=== PATIENT | female | born 1935 | race African-American/Black ===

== ENCOUNTER 2017-07-13 16:47 | Inpatient (IN) | payer OTHER ==
[~2017-07-13] VITALS: Ht 157.5 cm; Wt 63.2 kg
[2017-07-13 18:06] LABS: BASOPHIL % 0.5 % (0-2); PLATELET COUNT 187 x10^3mcL (130-400)
[2017-07-13 18:23] LABS: RED CELL DISTRIBUTION WIDTH 17.8 % (11.5-14.5)
[2017-07-13 18:29] LABS: CALCIUM 8.9 mg/dL (8.5-10.1); CARBON DIOXIDE 28.6 mmol/L (21-32); CHLORIDE SERUM 106 mmol/L (98-107); CREATININE SERUM 0.9 mg/dL (0.6-1.0); GLUCOSE SERUM 101 mg/dL (74-106); POTASSIUM SERUM 3.6 mmol/L (3.5-5.1); SODIUM SERUM 140 mmol/L (136-145)
[2017-07-13 18:34] LABS: ALBUMIN 3.4 g/dL (3.4-5.0); ALKALINE PHOSPHATASE 78 U/L (46-116); ALT/SGPT 18 U/L (14-59); AST/SGOT 14 U/L (15-37); BILIRUBIN TOTAL 0.27 mg/dL (0.20-1.00); HDL CHOLESTEROL 55 mg/dL (40-60); LIPASE 89 IU/L (73-393); T3 TOTAL 0.61 ng/mL; TOTAL PROTEIN, SERUM 7.2 g/dL (6.4-8.2); TRIGLYCERIDES 145 mg/dL (<150)
[2017-07-13 18:38] LABS: FREE T4 0.9 ng/dL (0.76-1.46); T4(THYROXINE) 5.9 ug/dL (4.7-13.3)
[2017-07-13 18:45] LABS: CHOLESTEROL 201 mg/dL (<200); CHOLESTEROL/HDL RATIO 3.7
[2017-07-13] MEDS ORDERED: SYNTHROID0.088 MG PO (19:19)
[2017-07-13 19:29] LABS: MAGNESIUM 2.1 mg/dL (1.8-2.4); PHOSPHOROUS 3.3 mg/dL (2.5-4.9)
[2017-07-13 19:58] VITALS: BP 196/72
[2017-07-13 20:00] VITALS: Ht 157.5 cm; Wt 63.2 kg
[2017-07-13 21:53] VITALS: BP 169/65
[2017-07-14 05:44] LABS: BASOPHIL % 0.6 % (0-2); PLATELET COUNT 162 x10^3mcL (130-400)
[2017-07-14 06:05] LABS: CALCIUM 8.3 mg/dL (8.5-10.1); CARBON DIOXIDE 27.1 mmol/L (21-32); CHLORIDE SERUM 110 mmol/L (98-107); CREATININE SERUM 0.8 mg/dL (0.6-1.0); GLUCOSE SERUM 101 mg/dL (74-106); PHOSPHOROUS 3.6 mg/dL (2.5-4.9); POTASSIUM SERUM 3.5 mmol/L (3.5-5.1); SODIUM SERUM 143 mmol/L (136-145)
[2017-07-14 06:11] VITALS: BP 167/66
[2017-07-14 07:29] LABS: RED CELL DISTRIBUTION WIDTH 17.6 % (11.5-14.5)
[2017-07-14 08:25] VITALS: BP 164/61
[2017-07-14 08:53] LABS: microscopic required? NO
[2017-07-14 09:04] LABS: urine erythrocyte NEGATIVE (NEGATIVE)
[2017-07-14 13:10] VITALS: BP 175/89
[2017-07-14 16:57] VITALS: BP 169/52
[2017-07-14] MEDS ORDERED: HYD25 PO (17:06)
[2017-07-14] MEDS ORDERED: LIPITOR40 MG PO (17:07)
[2017-07-14] MEDS ORDERED: NOR5 PO (17:07)
[2017-07-14] MEDS ORDERED: ECO81 PO (17:07)
[2017-07-14 17:51] VITALS: BP 169/52
== END 2017-07-14 18:55 | disposition home or self-care (01) | DRG 206 ==
LOC: ED 16:47 → DU 18:50
PROVIDERS: Family Medicine; Specialist
DX: M94.0 Chondrocostal junction syndrome [Tietze] (principal); I73.9 Peripheral vascular disease, unspecified; I16.0 Hypertensive urgency; E03.9 Hypothyroidism, unspecified; J43.9 Emphysema, unspecified; E78.00 Pure hypercholesterolemia, unspecified; F17.200 Nicotine dependence, unspecified, uncomplicated; E87.8 Other disorders of electrolyte and fluid balance, not elsewhere classified; E83.51 Hypocalcemia; K44.9 Diaphragmatic hernia without obstruction or gangrene; I08.3 Combined rheumatic disorders of mitral, aortic and tricuspid valves; R91.1 Solitary pulmonary nodule
CPT/HCPCS: 77066; 83880; 84439; J2543; J7030; Q0092; Q9967

== ENCOUNTER 2017-11-18 18:33 | Emergency (ER) | payer MEDICARE, OTHER ==
[~2017-11-18 18:33] MED LIST: ECO81 PO; HYD25 PO; LIPITOR40 MG PO; NOR5 PO; SYNTHROID0.088 MG PO
[2017-11-18 18:40] VITALS: Ht 154.9 cm
[2017-11-18 20:23] VITALS: BP 150/85
== END 2017-11-18 20:23 | disposition home or self-care (01) ==
LOC: ED 18:33
DX: M54.2 Cervicalgia (principal); T78.40XA Allergy, unspecified, initial encounter; X58.XXXA Exposure to other specified factors, initial encounter; E03.9 Hypothyroidism, unspecified

== ENCOUNTER 2018-04-26 16:53 | Emergency (ER) | payer MEDICARE, OTHER ==
[~2018-04-26] VITALS: Ht 152.4 cm; Wt 54.9 kg
[2018-04-26 17:53] VITALS: Ht 152.4 cm; Wt 54.9 kg
[2018-04-26 20:25] LABS: BASOPHIL % 0.5 % (0-2); PLATELET COUNT 214 x10^3mcL (130-400); RED CELL DISTRIBUTION WIDTH 14.5 % (11.5-14.5)
[2018-04-26 20:25] LABS: microscopic required? NO; urine erythrocyte NEGATIVE (NEGATIVE)
[2018-04-26 20:27] LABS: CALCIUM 9.6 mg/dL (8.5-10.1); CARBON DIOXIDE 29.2 mmol/L (21-32); CHLORIDE SERUM 97 mmol/L (98-107); CREATININE SERUM 0.8 mg/dL (0.6-1.0); GLUCOSE SERUM 88 mg/dL (74-106); POTASSIUM SERUM 3.1 mmol/L (3.5-5.1); SODIUM SERUM 136 mmol/L (136-145)
[2018-04-26 20:34] LABS: ALBUMIN 3.6 g/dL (3.4-5.0); ALKALINE PHOSPHATASE 104 U/L (46-116); ALT/SGPT 28 U/L (14-59); AST/SGOT 25 U/L (15-37); BILIRUBIN TOTAL 0.2 mg/dL (0.20-1.00); CHOLESTEROL 220 mg/dL (<200); HDL CHOLESTEROL 55 mg/dL (40-60); MAGNESIUM 2.3 mg/dL (1.8-2.4); TOTAL PROTEIN, SERUM 9.2 g/dL (6.4-8.2)
[2018-04-26 20:44] LABS: T3 TOTAL 0.74 ng/mL
[2018-04-26 20:59] LABS: FREE T4 1.13 ng/dL (0.76-1.46); FREE THYROXINE INDEX 3.1 ug/dL (1.4-4.5); T4(THYROXINE) 10.3 ug/dL (4.7-13.3)
[2018-04-26] MEDS ORDERED: SYNTHROID0.088 MG PO (21:11)
[2018-04-26] MEDS ORDERED: ASPIRIN81 MG PO (21:12)
[2018-04-26] MEDS ORDERED: HYDROCHLOROTHIA25 MG PO (21:12)
[2018-04-26] MEDS ORDERED: CILOSTAZOL100 M1 PO (21:13)
[2018-04-26] MEDS ORDERED: NOR5 PO (21:13)
[2018-04-26] MEDS ORDERED: ATORVASTATIN CA40 M1 PO (21:13)
[2018-04-26 22:38] VITALS: BP 135/60
== END 2018-04-26 22:38 | disposition home or self-care (01) ==
LOC: ED 16:53
PROVIDERS: Emergency Medicine
DX: R53.1 Weakness (principal); E87.6 Hypokalemia; J84.10 Pulmonary fibrosis, unspecified; F17.210 Nicotine dependence, cigarettes, uncomplicated; Z71.6 Tobacco abuse counseling; G89.29 Other chronic pain; E03.9 Hypothyroidism, unspecified
CPT/HCPCS: 36415; 84439; 87804; 99406; Q0092

== ENCOUNTER 2019-03-03 15:50 | Emergency (ER) | payer OTHER ==
[~2019-03-03] VITALS: Ht 154.9 cm; Wt 57.6 kg
[~2019-03-03 15:50] MED LIST changes: +ASPIRIN81 MG PO; +ATORVASTATIN CA40 M1 PO; +CILOSTAZOL100 M1 PO; +HYDROCHLOROTHIA25 MG PO
[2019-03-03 15:56] VITALS: BP 132/70; Ht 154.9 cm; Wt 57.6 kg
== END 2019-03-03 19:24 | disposition home or self-care (01) ==
LOC: ED 15:50
DX: J20.9 Acute bronchitis, unspecified (principal); E03.9 Hypothyroidism, unspecified; G89.29 Other chronic pain; F17.200 Nicotine dependence, unspecified, uncomplicated
CPT/HCPCS: 87804; 99406

== ENCOUNTER 2019-07-01 19:22 | Emergency (ER) | payer OTHER, MEDICARE ==
[~2019-07-01] VITALS: Ht 165.1 cm; Wt 55.8 kg
[2019-07-01 19:27] VITALS: Ht 165.1 cm; Wt 55.8 kg
[2019-07-01 21:13] LABS: microscopic required? NO
[2019-07-01 21:31] LABS: UA SPECIFIC GRAVITY <=1.005 (1.005-1.035); urine erythrocyte NEGATIVE (NEGATIVE)
[2019-07-01 21:37] LABS: BASOPHIL % 0.5 % (0-2); PLATELET COUNT 255 x10^3mcL (130-400); RED CELL DISTRIBUTION WIDTH 14.8 % (11.5-14.5)
[2019-07-01 21:47] LABS: CALCIUM 8.9 mg/dL (8.5-10.1); CARBON DIOXIDE 27.9 mmol/L (21-32); CHLORIDE SERUM 100 mmol/L (98-107); CREATININE SERUM 0.7 mg/dL (0.6-1.0); GLUCOSE SERUM 96 mg/dL (74-106); POTASSIUM SERUM 3.1 mmol/L (3.5-5.1); SODIUM SERUM 136 mmol/L (136-145)
[2019-07-01 21:51] LABS: ALBUMIN 3.4 g/dL (3.4-5.0); ALKALINE PHOSPHATASE 70 U/L (46-116); ALT/SGPT 16 U/L (14-59); AST/SGOT 20 U/L (15-37); BILIRUBIN TOTAL 0.3 mg/dL (0.20-1.00); CHOLESTEROL 166 mg/dL (<200); HDL CHOLESTEROL 56 mg/dL (40-60); TOTAL PROTEIN, SERUM 7.1 g/dL (6.4-8.2)
[2019-07-01 23:26] VITALS: BP 158/65
== END 2019-07-01 23:26 | disposition home or self-care (01) ==
LOC: ED 19:22
PROVIDERS: Emergency Medicine
DX: L25.9 Unspecified contact dermatitis, unspecified cause (principal); R42 Dizziness and giddiness; I10 Essential (primary) hypertension; E03.9 Hypothyroidism, unspecified; J44.9 Chronic obstructive pulmonary disease, unspecified; F17.210 Nicotine dependence, cigarettes, uncomplicated; G89.29 Other chronic pain; Z98.890 Other specified postprocedural states
CPT/HCPCS: 82962; 99406; J7030; J8597; Q0092

== ENCOUNTER 2019-12-21 17:43 | Emergency (ER) | payer MEDICARE, OTHER ==
[~2019-12-21] VITALS: Ht 154.9 cm; Wt 55.3 kg
[2019-12-21 18:05] VITALS: Ht 154.9 cm; Wt 55.3 kg
[2019-12-21 19:48] VITALS: BP 148/60
== END 2019-12-21 19:45 | disposition home or self-care (01) ==
LOC: ED 17:43
DX: M19.90 Unspecified osteoarthritis, unspecified site (principal); R05 Cough; L30.9 Dermatitis, unspecified; J44.9 Chronic obstructive pulmonary disease, unspecified; E03.9 Hypothyroidism, unspecified; Z20.828 Contact with and (suspected) exposure to other viral communicable diseases; Z98.890 Other specified postprocedural states
CPT/HCPCS: Q0092